=== PATIENT | male | born 2005 | race Caucasian/White ===

== ENCOUNTER 2024-10-20 23:19 | Emergency (ER) | payer OTHER, SELFPAY ==
[2024-10-20 23:33] VITALS: BP 129/75
[2024-10-21 00:56] LABS: % Basophils 0.2 % (0-2); % Eosinophils 2.7 % (0-6); % Immature Granulocytes 0.4 % (0-0.5); % Lymphocytes 21.3 % (20.5-51.1); % Monocytes 9.2 % (1.7-9.3); % Neutrophils 66.2 % (42.2-75.2); Absolute Eosinophils 0.3 10^3/uL (0-0.7); Absolute Monocytes 0.9 10^3/uL (0.1-0.6); Absolute Neutrophils 6.1 10^3/uL (1.4-6.5); Hematocrit 39.7 % (39.0-52.0); Hemoglobin 14.2 g/dL (13.0-18.0); Mean Corp Hgb Conc. 35.8 g/dL (33.0-37.0); Mean Corpuscular Hgb 29.8 pg (27.0-31.0); Mean Corpuscular Volume 83.2 fL (80.0-94.0); Mean Platelet Volume 10.1 fL (7.4-10.4); Nucleated Red Blood Cells % 0 % (-); Platelet Count 250 10^3/uL (130-400); Red Blood Cell Count 4.77 10^6/uL (4.70-6.10); Red Cell Dist. Width 12.5 % (11.5-14.5); White Blood Cell Count 9.2 10^3/uL (4.8-10.8)
[2024-10-21 01:17] LABS: ALT (SGPT) 31 U/L (0-50); AST (SGOT) 32 U/L (17-59); Albumin 4.8 g/dl (3.5-5.0); Alkaline Phosphatase 81 U/L (38-126); Blood Urea Nitrogen 16 mg/dl (9-20); Calcium 9.6 mg/dl (8.4-10.2); Carbon Dioxide 27 mmol/L (22-30); Chloride 106 mmol/L (98-107); Glucose 100 mg/dl (70-99); Sodium 144 mmol/L (135-145); Total Protein 7.5 g/dl (6.3-8.2); eGFR > 60.00
[2024-10-21 01:44] VITALS: BP 121/64; BMI 19.5
--- NOTE | 2024-10-21 01:44 | ED.GENMED ---
History of Present Illness
General
Chief Complaint: Dehydration Symptoms
Source: patient and family (Grandmother)
Time Seen by Provider: 10/21/24 00:53
Nursing documentation reviewed up to this point in time: agreed with
History of Present Illness
History of Present Illness:
Note:
CHIEF COMPLAINT(S)
Dehydration.
HISTORY OF PRESENT ILLNESS
The patient is a 19-year-old male presenting with symptoms of dehydration. He reports not drinking water adequately over the past three days and acknowledges insufficient food intake. The patient has been outside during this period, engaging in
camping activities in forested areas. No current regular medication use was reported. The patient denies nausea, excessive alcohol use, and drug use.
ADDITIONAL HISTORY OBTAINED FROM SOURCES OTHER THAN THE PATIENT
Information provided by a family member reveals that the patient is currently without stable housing, residing outdoors. Attempts to connect with family members, including his mother and father, were mentioned, but living arrangements with them are
not feasible at this moment.
SOCIAL DETERMINANTS AFFECTING HEALTH
The patient is currently experiencing housing instability, as he has been living outdoors, specifically mentioning camping in forest areas. He is in contact with family members, but stable housing options are currently unavailable through them.
PHYSICAL EXAM
- Cardiovascular: Heart sounds normal upon auscultation.
Nursing notes reviewed and vital signs reviewed.
PLAN
Provide oral hydration and food for the patient. Assess social support to explore potential housing options or referrals to social services analyst that can assist with housing stability.
DIFFERENTIAL DIAGNOSIS
The Differential Diagnosis includes, in no particular order and is not limited to:
1. Dehydration from inadequate oral intake.
2. Heat exhaustion or heat-related illness.
3. Electrolyte imbalance.
4. Acute kidney injury.
5. Malnutrition.
6. Viral gastroenteritis.
7. Gastrointestinal bleeding.
8. Hypoglycemia.
9. Hyperthyroidism.
10. Psychiatric conditions affecting self-care.
CARE-UPDATE
10/21/24 - 01:37
Patient reports mild pain and a popping sensation in the left pinky toe when moved, indicating a possible sprain rather than a fracture. No discoloration or significant swelling noted in the pinky toe. Slight swelling observed. Patient expresses
that the toe hurts only with movement, particularly when stretched. Left lateral knee pain persists, but the patient maintains full range of motion and no tenderness upon palpation in the midline is noted. No new treatment modifications were
discussed during the interaction.
Disposition:
SUMMARY OF ENCOUNTER
A 19-year-old male presented with dehydration concerns, compounded by social determinants such as homelessness. He reported inadequate water and food intake over a period of three days, while engaging in outdoor camping activities. In the emergency
department, he was able to consume a full meal that included a loush tray with two additional apple juices (making three in total), two large glasses of water, multiple applesauces, and a turkey sandwich. His lab results were described as
reasonable. He was also provided resources by a crisis intervention team regarding homelessness.
DISPOSITION
Patient is being discharged in an improved condition.
ASSESSMENT
The patient presented with dehydration likely due to inadequate oral intake and environmental exposure. Despite complaints of toe pain, there was no discoloration, swelling, or tenderness upon palpation, and full range of motion was observed in the
knee with no tenderness or swelling.
PLAN
Provide resources to address homelessness, encouraging connection with social services analyst to secure more stable housing options.
PATIENT EDUCATION AND COUNSELING
Counseled the patient on ensuring adequate hydration, especially during outdoor activities. He was advised on the importance of consuming sufficient water regularly and maintaining proper nutrition to avoid dehydration.
MEDICATION RECONCILIATION
No medications were administered or prescribed during this visit.
MEDICAL DECISION MAKING
Addressed the complexity of social determinants of health, particularly homelessness, which significantly impacted the patients care plan. The patients acute presentation of dehydration was evaluated, with considerations about potential escalation
of care if needed. Resources were provided to address housing instability, which is a critical factor influencing the patients health and well-being.
Past History
Social History
Tobacco: Non-smoker
Alcohol: None
Course
Orders/Labs/Results
Orders:
Orders
10/21/24 00:48
CMP [Comprehensive Metabolic Panel] Urgent
Complete Blood Count/With Diff Urgent
10/21/24 00:58
0.9% Sodium Chloride 1000 ml [Nss] 1,000 ml IV BOLUS
Abnormal Lab Results
10/21/24
00:48
Absolute Monos (auto) 0.9 H 10^3/uL
(0.1-0.6)
Glucose 100 H mg/dl
(70-99)
Total Bilirubin 2.0 H mg/dl
(0.2-1.3)
10/21/24 00:48
10/21/24 00:48
Vital Signs
Initial and Last Documented VS:
Initial Vital Signs
Temp Pulse Resp BP Pulse Ox
98.8 F 75 15 129/75 97
10/20/24 23:33 10/20/24 23:33 10/20/24 23:33 10/20/24 23:33 10/20/24 23:33
Last Documented Vital Signs
Temp Pulse Resp BP Pulse Ox
98.8 F 75 15 129/75 97
10/20/24 23:33 10/20/24 23:33 10/20/24 23:33 10/20/24 23:33 10/20/24 23:33
ED Attending Note
-
Portions of this chart may have been created with voice recognition software.� Occasional wrong word or��sound alike� substitutions may have occurred due to the inherent limitations of voice recognition software.
Discharge Plan
Departure
Patient Disposition: Home (Routine Discharge)
Date of Disposition: 10/21/24
Time of Disposition: 01:50
Patient with high blood pressure during this ER visit?: Yes
Discharge Problem:
Acute dehydration
Instructions: Dehydration, Adult (DC)
Prescriptions:
No Action
ibuprofen 600 MG tablet
600 mg PO Q8HPRN PRN (Reason: pain) 5 Days Qty: 20 0RF
Referrals:
[facility] [Outside]
NONE,* [Family Provider, Internal Medicine]
Activity Restrictions/Additional Instructions:
Thank You for choosing [facility].
It was a pleasure meeting you and taking part in your care. We hope for your continued healing and wellness.
Please read discharge instructions in their entirety. However, they are for general education and may not describe your exact diagnosis at discharge. Information on your ER visit and medical conditions were discussed with you along with appropriate
follow up information...
If indicated, please take your medications as instructed and indicated on discharge paperwork.
Please schedule a follow up appointment as directed. Call to schedule an appointment
Please return to the emergency department with ANY change in, persisting, or worsening of symptoms. If any of your symptoms do not improve, or persist, or become more severe within 6-12 hours, please return to the emergency department for further
care.
Please return to the emergency department if you develop a headache, neck pain/stiffness, fever greater than 100.4F, chest pain, shortness of breath, persistent nausea, vomiting, slurred speech, difficulty walking, numbness/tingling, weakness, signs
of infection or any other symptoms that are worrisome to you.
If you have any questions or concerns please do not hesitate to call the Hospital at .
Interventions
Interventions:
*Risk Screen - Suicide Last Done: 10/20/24 23:33
ED- Cardiac Assessment Last Done: 10/21/24 01:44
ED- Neurological Assessment Last Done: 10/21/24 01:44
ED- Pulmonary Assessment Last Done: 10/21/24 01:44
Discharge Date and Time
Print Language: PASHTO
== END 2024-10-21 02:14 | disposition home or self-care (01) ==
LOC: EMR 23:19
PROVIDERS: EMERGENCY PHYSICIAN Student in an Organized Health Care Education/Training Program
DX: E86.0 Dehydration (principal); Z59.00 Homelessness unspecified
CPT/HCPCS: 99282; 80053; 85025

== ENCOUNTER 2024-10-29 15:28 | Emergency (ER) | payer OTHER, SELFPAY ==
[2024-10-29 15:29] VITALS: BP 131/62
[2024-10-29 17:33] VITALS: BP 136/81; BMI 18.0
--- NOTE | 2024-10-29 17:52 | ED.GENMED ---
History of Present Illness
General
Chief Complaint: Dehydration Symptoms
Source: patient
Time Seen by Provider: 10/29/24 15:41
History of Present Illness
History of Present Illness:
Note:
CHIEF COMPLAINT(S)
Dehydration and dermatological foot issues.
HISTORY OF PRESENT ILLNESS
The patient is a 19-year-old male presenting with symptoms of dehydration after living on the streets due to unspecified personal reasons. He reports exposure to heat and insufficient fluid and food intake. He previously had a similar episode
approximately a week and a half ago, during which he visited the emergency department for blood work. He has recently begun working, with plans to relocate to [place] for a potential job opportunity. He reports foot discomfort, suspecting hygiene
issues with redness but intact skin on both feet.
ADDITIONAL HISTORY OBTAINED FROM SOURCES OTHER THAN THE PATIENT
The patient mentioned previous ER visitation for dehydration confirmed by blood test the prior week.
SOCIAL DETERMINANTS AFFECTING HEALTH
The patient is experiencing homelessness and financial instability, living on the streets, and has limited access to adequate food and hydration.
REVIEW OF SYSTEMS
- Dermatological: Redness and discomfort in feet.
- Constitutional: Inadequate food and fluid intake.
- Social: Homelessness, financial instability.
PHYSICAL EXAM
- General: Patient is awake, alert, and oriented.
- Cardiovascular: Heart is regular without murmurs.
- Pulmonary: Lungs are clear, no respiratory distress.
- Neurological: Cranial nerves intact, no focal motor deficits.
- Extremities: Redness on both feet, skin intact, no blistering observed.
DIFFERENTIAL DIAGNOSIS
The Differential Diagnosis includes, in no particular order and is not limited to:
1. Dehydration
2. Heat exhaustion
3. Malnutrition
4. Dermatological infection (foot)
5. Contact dermatitis
6. Cellulitis
7. Stress-induced erythema
8. Peripheral vascular disease
9. Immune response deficiency
10. Substance withdrawal effects
Disposition:
SUMMARY OF ENCOUNTER
The patient, a 19-year-old male, presented with symptoms indicative of dehydration, but on examination, he appeared well with moist mucous membranes and normal vital signs.
DISPOSITION
The patient was stable for discharge with recommendations for outpatient follow-up.
ASSESSMENT
Dehydration related to living conditions.
EMERGENCY TREATMENTS ADMINISTERED
The patient was provided with a box lunch and liquids, which he tolerated well.
PLAN
Recommended follow-up with local shelters for support and hydration, recognizing the challenge of waitlists. The patient mentioned having a residence he can use if needed.
MEDICAL DECISION MAKING
1. Number & Complexity of Problems: Acute issue related to dehydration from lack of resources while homeless.
2. Data Reviewed: Vital signs and physical examination suggested no acute distress or significant dehydration at the moment.
3. Risk: Consideration of admission/observation was made due to complexity/risk of dehydration and homelessness. However, outpatient management is deemed appropriate based on the patient�s current stability.
PATHOLOGIES TO CONSIDER
Dehydration due to inadequate intake of fluids and food.
Past History
Social History
Tobacco: Non-smoker
Alcohol: None
Phy Exam
Physical Exam
Physical Exam:
.
Course
Vital Signs
Initial and Last Documented VS:
Initial Vital Signs
Temp Pulse Resp BP Pulse Ox
98.8 F 66 16 131/62 98
10/29/24 15:29 10/29/24 15:29 10/29/24 15:29 10/29/24 15:29 10/29/24 15:29
Last Documented Vital Signs
Temp Pulse Resp BP Pulse Ox
97.6 F 86 20 136/81 98
10/29/24 17:33 10/29/24 17:33 10/29/24 17:33 10/29/24 17:33 10/29/24 17:55
*Pulse Oximetry
SaO2: 98
Oxygen Mode of Delivery: Room air
Patient hypoxic: no
*Critical Care Note
Total Time (30-74mins, 75-104mins- exclusive of procedures): Not Applicable
ED Attending Note
-
Portions of this chart may have been created with voice recognition software.� Occasional wrong word or��sound alike� substitutions may have occurred due to the inherent limitations of voice recognition software.
Discharge Plan
Departure
Patient Disposition: Home (Routine Discharge)
Date of Disposition: 10/29/24
Time of Disposition: 17:52
Patient with high blood pressure during this ER visit?: No
Discharge Problem:
Homelessness
Instructions: Dehydration, Adult (DC)
Prescriptions:
No Action
ibuprofen 600 MG tablet
600 mg PO Q8HPRN PRN (Reason: pain) 5 Days Qty: 20 0RF
Referrals:
NONE,* [Family Provider, Internal Medicine]
Activity Restrictions/Additional Instructions:
Please drink plenty of fluids.
Interventions
Interventions:
*Risk Screen - Suicide Last Done: 10/29/24 17:33
*General Assessment Last Done: 10/29/24 17:33
*Neglect/Abuse Screening Last Done: 10/29/24 17:33
*ED- Fall Risk Assessment Last Done: 10/29/24 17:33
*ED COVID-19 Vaccine History Last Done: 10/29/24 17:33
*Nursing Disposition Last Done: 10/29/24 18:35
ED- Cardiac Assessment Last Done: 10/29/24 17:33
ED- Neurological Assessment Last Done: 10/29/24 17:33
ED- Pulmonary Assessment Last Done: 10/29/24 17:33
Discharge Date and Time
Discharge Date/Time: 10/29/24 18:37
Print Language: QATARI
== END 2024-10-29 18:37 | disposition home or self-care (01) ==
LOC: EMR 15:28
PROVIDERS: EMERGENCY PHYSICIAN Emergency Medicine
DX: Z04.89 Encounter for examination and observation for other specified reasons (principal); Z59.02 Unsheltered homelessness; Z59.48 Other specified lack of adequate food; Z59.86 Financial insecurity
CPT/HCPCS: 99282